=== PATIENT | female | born 1975 ===

== ENCOUNTER 2021-03-24 05:52 | Day surgery (SDC) | payer OTHER ==
[~2021-03-24 05:52] MED LIST: [UNRECOGNIZED DRUG - OTHER] PO
== END 2021-03-24 16:25 | disposition home or self-care (01) ==
LOC: CIR.AMB 05:52
PROVIDERS: ATTEND Obstetrics & Gynecology
DX: O00.102 Left tubal pregnancy without intrauterine pregnancy (principal); N73.6 Female pelvic peritoneal adhesions (postinfective); Z20.822 Contact with and (suspected) exposure to COVID-19